=== PATIENT | female | born 1950 | race American Indian/Alaskan Native ===

== ENCOUNTER 2024-04-15 09:33 | Outpatient (CLI) | payer OTHER ==
[~2024-04-15 09:33] MED LIST: CAMBIA50 MG PO; CARBAMAZEPINE200 M3 PO; CHILDREN'S ASPI81 MG PO; COZAAR50 MG PO; DONEPEZIL HCL O10 MG PO; DOXAZOSIN MESYLA2 MG PO; ENALAPRIL MALEAT5 MG PO; FOLIC ACID0.8 M1 PO; GLIPIZIDE ER5 MG PO; JANUMET 50-1,01 EACH PO; KETO10TA2 PO; MELOXICAM7.5 MG PO; MEMANTINE HCL10 MG PO; MONTELUKAST SODI4 M1 PO; PANTOPRAZOLE SO40 M2 PO; PERCOCET 5-3251 EACH PO; PLAVIX75 MG PO; TAMS0.4C PO; VITAMIN B-121000 MC4 PO; XELPROS2.5 ML OP; ZANTAC25 MG/1 ML IJ
== END 2024-04-15 09:37 | disposition home or self-care (01) ==
LOC: RAD 09:33
PROVIDERS: ATTEND Specialist
DX: J45.998 Other asthma (principal)

== ENCOUNTER 2024-05-05 08:24 | Outpatient (CLI) | payer OTHER | END 2024-05-05 08:26 | disposition home or self-care (01) | LOC: NUCLEAR 08:24 | PROVIDERS: ATTEND Specialist | DX: I63.9 Cerebral infarction, unspecified (principal); I65.29 Occlusion and stenosis of unspecified carotid artery ==

== ENCOUNTER 2024-11-08 07:23 | Outpatient (CLI) | payer OTHER | END 2024-11-08 07:27 | disposition home or self-care (01) | LOC: NUCLEAR 07:23 | PROVIDERS: ATTEND Internal Medicine | DX: I20.9 Angina pectoris, unspecified (principal) | CPT/HCPCS: 78452; 93017; A9500 ==

== ENCOUNTER 2025-04-06 13:26 | Outpatient (CLI) | payer OTHER ==
[2025-04-06 15:03] LABS: CREATININE SERUM 0.83 mg/dL (0.55-1.02); GFR 67.2
== END 2025-04-06 13:29 | disposition home or self-care (01) ==
LOC: LAB 13:26
PROVIDERS: ATTEND Radiology Diagnostic Radiology
DX: I75 Atheroembolism (principal)

== ENCOUNTER 2025-04-20 07:18 | Outpatient (CLI) | payer OTHER | END 2025-04-20 07:20 | disposition home or self-care (01) | LOC: TOM 07:18 | PROVIDERS: ATTEND Internal Medicine | DX: I73.9 Peripheral vascular disease, unspecified (principal) | CPT/HCPCS: 73706; Q9965 ==